=== PATIENT | male | born 1940 | race Caucasian/White ===

== ENCOUNTER 2019-03-18 06:58 | Emergency (ER) | payer MEDICARE, BC ==
--- NOTE | 2019-03-18 07:36 | CT ---
Exam: CT brain without contrast HISTORY: Fell out of bed this morning with head trauma COMPARISON: 10/17/2015 TECHNIQUE: Multiple contiguous axial images were obtained and a CT of the brain without contrast. FINDINGS: There are scattered hypodensities in the subcortical and periventricular white matter consi stent with small vessel ischemic disease. Encephalomalacia is seen in both cerebellar hemispheres. There is no evidence of hydrocephalus, intracranial hemorrhage, or extra-axial fluid collection. The calvarium and overlying soft tissues are unremarkable. The visualized paranasal sinuses and masto id air cells are well aerated. IMPRESSION: No evidence of acute intracranial abnormality
--- NOTE | 2019-03-18 07:46 | CT ---
Exam: CT of the cervical spine without contrast HISTORY: Fall with neck pain COMPARISON: None TECHNIQUE: Multiple contiguous axial images were obtained in a CT of the cervical spine without contr ast. Sagittal and coronal reformats were performed. FINDINGS: Degenerative changes are seen in the mid to lower cervical spine with intervertebral disc s pace narrowing and anterior osteophytes. The vertebral bodies demonstrate normal height and alignment without fracture or subluxation. No prevertebral soft tissue swelling is seen. The posterior facets are well aligned. Normal alignment of the skull base with the cervical spine is seen. The lung apices and cervical soft tissues are unremarkable. IMPRESSION: No evidence of acute osseous abnormality of the cervical spine.
[2019-03-18] MEDS ORDERED: Lidocaine 1% w/Epinephrine 1:100K 20 ML VIAL ONE (08:53)
[2019-03-18] MEDS ORDERED: Adacel (T-DAP) 0.5 ML SYRINGE ONE (08:53)
== END 2019-03-18 09:44 | disposition home or self-care (01) ==
LOC: ERS 06:58
DX: S01.81XA Laceration without foreign body of other part of head, initial encounter (principal); G20 Parkinson's disease; I10 Essential (primary) hypertension; Z86.73 Personal history of transient ischemic attack (TIA), and cerebral infarction without residual deficits; W06.XXXA Fall from bed, initial encounter
CPT/HCPCS: 12011; 70450; 72125; 90471; 90715; J2001

== ENCOUNTER 2022-11-25 07:33 | Inpatient (IN) | payer MEDICARE, BC ==
[2022-11-25 09:14] LABS: ALT (SGPT) 31 U/L (8-55); AST (SGOT) 32 U/L (5-34); Albumin 4.3 g/dL (3.4-4.8); Alkaline Phosphatase 55 U/L (40-110); Anion Gap 21 mmol/L (10-20); BUN (Urea Nitrogen) 24 mg/dL (8.4-25.7); Bilirubin, Total 1.6 mg/dL (0.2-1.2); CK (CPK) 510 U/L (30-200); Calc. Creatinine Clearance 0 mL/min (70-130); Calcium 9.1 mg/dL (7.8-10.44); Carbon Dioxide 19 mmol/L (23-31); Chloride 100 mmol/L (98-107); Estimated GFR 48; Globulin 2.8 g/dL (2.4-3.5); Glucose 175 mg/dL (83-110); Lipase 9 U/L (8-78); Potassium 4.2 mmol/L (3.5-5.1); Protein, Total 7.1 g/dL (5.8-8.1); Sodium 136 mmol/L (136-145)
[2022-11-25 09:16] LABS: Hemoglobin 15.2 g/dL (14.0-18.0); Mean Corpuscular HGB CONC 33.4 g/dL (32.0-36.0); Mean Corpuscular Hemoglobin 33.7 pg (27.0-31.0); RBC Distribution Width 13.2 % (11.5-14.5)
[2022-11-25 09:32] LABS: #Lymphocytes 0.4 thou/uL (1.20-3.40); #Monocytes 0.7 thou/uL (0.11-0.59); #Neutrophils 17.4 thou/uL (1.40-6.50); %Eosinophils 0.1 % (0.0-10.0); %Lymphocytes 2.3 % (21.0-51.0); %Monocytes 3.8 % (0.0-10.0); %Neutrophils 93.8 % (42.0-75.0); Large Platelets MODERATE; MDiff Complete? YES; Mean Platelet Volume 14.2 fL (7.4-10.4); Platelet Count 200 10x3/uL (130-400); Platelet Morphology Comment Appears Adequate; White Blood Cell (WBC) Count 18.5 10x3/uL (4.8-10.8)
[2022-11-25 09:36] LABS: CKMB 8.2 ng/mL (0-6.6)
[2022-11-25] MEDS ORDERED: Ondansetron PF 4 MG/2 ML Vial IVP PRN (10:46)
[2022-11-25] MEDS ORDERED: Acetaminophen 325 MG TAB PO PRN (10:46)
[2022-11-25] MEDS ORDERED: Ondansetron ODT 4 MG TAB PO PRN (10:46)
[2022-11-25 11:47] LABS: SARS-CoV-2 NAA Rapid Test Not Detected (NotDetected)
[2022-11-25 12:23] LABS: Acetaminophen Less than 10.0 mcg/mL (10.0-30.0); Alcohol Less than 10 mg/dL (Less than 10); Salicylate Less than 8.0 mg/dL (15.0-30.0)
[2022-11-25 13:16] LABS: CKMB 7.6 ng/mL (0-6.6)
[2022-11-25 13:56] LABS: Amphetamine Not Detected (NotDetected); Barbiturates Screen Detected (NotDetected); Benzodiazepine Screen Not Detected (NotDetected); Cocaine Metabolite Screen Not Detected (NotDetected); Methadone Not Detected (NotDetected); Methamphetamine Not Detected (NotDetected); Opiate Screen Not Detected (NotDetected); Oxycodone Screen Not Detected (NotDetected); Phencyclidine (PCP) Not Detected (NotDetected); THC/Cannabinoid Screen Not Detected (NotDetected); Tricyclic Screen Not Detected (NotDetected)
[2022-11-25] MEDS ORDERED: Furosemide 20 MG/2 ML VIAL SLOW IVP SCH (14:44)
[2022-11-25] MEDS ORDERED: Furosemide 20 MG/2 ML VIAL ONE (15:18)
[2022-11-25] MEDS ORDERED: Cefepime 2 GM in Sodium Chloride 0.9% 100 ML IVPB SCH (15:28)
[2022-11-25] MEDS ORDERED: Aspirin 325 MG TAB PO SCH (15:47)
[2022-11-25] MEDS ORDERED: FLU VACC QS2022-23(65YR UP)/PF 240 MCG/0.7 ML SYRINGE IM ONE (17:30)
[2022-11-25 17:47] VITALS: BMI 28.2
[2022-11-25] MEDS: Sodium Chloride 0.9% 1,000 ML IV SCH (18:33)
[2022-11-25] MEDS ORDERED: Propranolol 10 MG TAB PO PRN (18:57)
[2022-11-25] MEDS: Primidone 250 MG TAB PO SCH ×2 (19:38→19:57)
[2022-11-25] MEDS: Apixaban 5 MG TAB PO SCH (19:57)
[2022-11-25] MEDS: Carbidopa/Levodopa 25-100 mg Tablet PO SCH (19:57)
[2022-11-26 00:13] LABS: Bilirubin Negative (Negative); Blood, Urine Negative (Negative); Clarity Clear (Clear); Glucose, Urine (Dipstick) Negative (Negative); Ketone, Urine Trace mg/dL (Negative); Leukocyte Negative (Negative); Nitrite Negative (Negative); Protein, Urine (Dipstick) 30 mg/dL (Neg-Trace); Specific Gravity, Urine 1.025 (1.005-1.030); Urobilinogen 0.2 mg/dL (Less than 2)
[2022-11-26 00:16] LABS: Bacteria/HPF None Seen HPF (None Seen); CAUTI Indications for Culture Alt mental st,lethar; RBC/HPF None Seen HPF (0-3); Squamous Epithelial None Seen HPF (0-3); WBC/HPF None Seen HPF (0-3)
[2022-11-26 00:17] LABS: Urine Culture Reflex No No
[2022-11-26 02:02] LABS: Troponin I 0.541 ng/mL (< 0.028)
[2022-11-26] MEDS: Sodium Chloride 0.9% 1,000 ML IV SCH ×3 (04:15→21:50)
[2022-11-26 05:31] LABS: Anion Gap 17 mmol/L (10-20); BUN (Urea Nitrogen) 25 mg/dL (8.4-25.7); Calc. Creatinine Clearance 54 mL/min (70-130); Calcium 8.6 mg/dL (7.8-10.44); Carbon Dioxide 18 mmol/L (23-31); Chloride 106 mmol/L (98-107); Estimated GFR 58; Glucose 103 mg/dL (83-110); Sodium 137 mmol/L (136-145)
[2022-11-26] MEDS: Cefepime 1 GM in Sodium Chloride 0.9% 100 ML IVPB SCH ×2 (05:51→17:15)
[2022-11-26 07:01] LABS: #Monocytes 1.2 thou/uL (0.11-0.59); %Basophils 0.1 % (0.0-1.0); %Eosinophils 0.1 % (0.0-10.0); %Lymphocytes 6.2 % (21.0-51.0); %Monocytes 7.4 % (0.0-10.0); %Neutrophils 86.2 % (42.0-75.0); Hemoglobin 14.6 g/dL (14.0-18.0); Mean Corpuscular HGB CONC 33.4 g/dL (32.0-36.0); Mean Corpuscular Hemoglobin 33.5 pg (27.0-31.0); Mean Platelet Volume 9.6 fL (7.4-10.4); Platelet Count 81 10x3/uL (130-400); RBC Distribution Width 13.2 % (11.5-14.5); Red Blood Cell (RBC) Count 4.37 mill/uL (4.70-6.10); White Blood Cell (WBC) Count 16.2 10x3/uL (4.8-10.8)
[2022-11-26] MEDS: Tamsulosin HCl 0.4 MG CAP PO SCH (08:33)
[2022-11-26] MEDS: Apixaban 5 MG TAB PO SCH ×2 (08:33→20:20)
[2022-11-26] MEDS: Carbidopa/Levodopa 25-100 mg Tablet PO SCH ×4 (08:33→20:20)
[2022-11-26] MEDS: Primidone 250 MG TAB PO SCH ×3 (08:46→20:20)
[2022-11-26] MEDS ORDERED: Aspirin Chewable 81 MG TAB PO SCH (09:00)
[2022-11-27 05:43] LABS: Anion Gap 13 mmol/L (10-20); BUN (Urea Nitrogen) 25 mg/dL (8.4-25.7); Calc. Creatinine Clearance 62 mL/min (70-130); Calcium 8.4 mg/dL (7.8-10.44); Carbon Dioxide 20 mmol/L (23-31); Chloride 105 mmol/L (98-107); Estimated GFR 69; Glucose 113 mg/dL (83-110); Sodium 134 mmol/L (136-145)
[2022-11-27 05:44] LABS: Troponin I 0.186 ng/mL (< 0.028)
[2022-11-27 05:47] LABS: #Eosinphils 0.1 thou/uL (0.0-0.7); #Lymphocytes 1.1 thou/uL (1.20-3.40); #Neutrophils 10.6 thou/uL (1.40-6.50); %Basophils 0.1 % (0.0-1.0); %Eosinophils 0.7 % (0.0-10.0); %Lymphocytes 8.5 % (21.0-51.0); %Monocytes 7.5 % (0.0-10.0); %Neutrophils 83.2 % (42.0-75.0); Large Platelets SLIGHT; MDiff Complete? YES; Mean Corpuscular HGB CONC 32.5 g/dL (32.0-36.0); Mean Corpuscular Hemoglobin 32.9 pg (27.0-31.0); Mean Platelet Volume 14.2 fL (7.4-10.4); Platelet Count 75 10x3/uL (130-400); Platelet Morphology Comment Appears Decreased; RBC Distribution Width 13.1 % (11.5-14.5); RBC Morphology Normal; Red Blood Cell (RBC) Count 4.24 mill/uL (4.70-6.10); White Blood Cell (WBC) Count 12.7 10x3/uL (4.8-10.8)
[2022-11-27] MEDS: Cefepime 1 GM in Sodium Chloride 0.9% 100 ML IVPB SCH ×2 (06:40→17:30)
[2022-11-27] MEDS: Carbidopa/Levodopa 25-100 mg Tablet PO SCH ×4 (11:36→17:53)
[2022-11-27] MEDS: Sodium Chloride 0.9% 1,000 ML IV SCH (11:39)
[2022-11-27] MEDS: Primidone 250 MG TAB PO SCH ×3 (11:41→22:05)
[2022-11-27] MEDS: Apixaban 5 MG TAB PO SCH ×3 (11:41→22:05)
[2022-11-27] MEDS: Gabapentin 300 MG CAP PO SCH ×3 (11:42→18:23)
[2022-11-27] MEDS: Tamsulosin HCl 0.4 MG CAP PO SCH (11:42)
[2022-11-27 18:31] LABS: Platelet Count 77 10x3/uL (130-400)
[2022-11-27 18:44] LABS: Fibrinogen 419 mg/dL (253-463)
[2022-11-27 18:45] LABS: INR-International Normal Ratio 1.6; PTT 40.1 sec (22.9-36.1); Prothrombin Time 19.5 sec (12.0-14.7)
[2022-11-27 18:46] LABS: D-Dimer Test 0.81 *mcg/mL (0.27-0.43)
[2022-11-27 18:58] LABS: CKMB 2.7 ng/mL (0-6.6)
[2022-11-27 21:23] LABS: #Eosinphils 0.1 thou/uL (0.0-0.7); #Lymphocytes 1.3 thou/uL (1.20-3.40); #Monocytes 1.1 thou/uL (0.11-0.59); #Neutrophils 10.2 thou/uL (1.40-6.50); %Basophils 0.1 % (0.0-1.0); %Eosinophils 0.4 % (0.0-10.0); %Monocytes 8.7 % (0.0-10.0); %Neutrophils 80.7 % (42.0-75.0); Hemoglobin 14.5 g/dL (14.0-18.0); Mean Corpuscular HGB CONC 33.5 g/dL (32.0-36.0); Mean Corpuscular Hemoglobin 33.7 pg (27.0-31.0); Platelet Count 20 10x3/uL (130-400); RBC Distribution Width 13.1 % (11.5-14.5); Red Blood Cell (RBC) Count 4.31 mill/uL (4.70-6.10); White Blood Cell (WBC) Count 12.6 10x3/uL (4.8-10.8)
[2022-11-27 21:36] LABS: Lactic Acid 1.8 mmol/L (0.5-2.2)
[2022-11-27 21:40] LABS: Anion Gap 14 mmol/L (10-20); BUN (Urea Nitrogen) 20 mg/dL (8.4-25.7); Calc. Creatinine Clearance 63 mL/min (70-130); Calcium 8.3 mg/dL (7.8-10.44); Carbon Dioxide 18 mmol/L (23-31); Chloride 107 mmol/L (98-107); Estimated GFR 71; Glucose 112 mg/dL (83-110); Potassium 4.4 mmol/L (3.5-5.1); Sodium 135 mmol/L (136-145)
[2022-11-27 21:45] LABS: Troponin I 0.139 ng/mL (< 0.028)
[2022-11-28] MEDS: Sodium Chloride 0.9% 1,000 ML IV SCH ×2 (00:30→11:48)
[2022-11-28 05:19] LABS: #Eosinphils 0.1 thou/uL (0.0-0.7); #Lymphocytes 1.1 thou/uL (1.20-3.40); #Monocytes 0.8 thou/uL (0.11-0.59); #Neutrophils 8.3 thou/uL (1.40-6.50); %Basophils 0.3 % (0.0-1.0); %Eosinophils 0.8 % (0.0-10.0); %Lymphocytes 10.6 % (21.0-51.0); %Monocytes 7.7 % (0.0-10.0); %Neutrophils 80.6 % (42.0-75.0); Hemoglobin 15.1 g/dL (14.0-18.0); Mean Corpuscular HGB CONC 32.4 g/dL (32.0-36.0); Mean Corpuscular Hemoglobin 33.5 pg (27.0-31.0); Mean Platelet Volume 14.4 fL (7.4-10.4); Platelet Count 46 10x3/uL (130-400); RBC Distribution Width 13.4 % (11.5-14.5); White Blood Cell (WBC) Count 10.3 10x3/uL (4.8-10.8)
[2022-11-28] MEDS: Cefepime 1 GM in Sodium Chloride 0.9% 100 ML IVPB SCH (05:40)
[2022-11-28] MEDS: Gabapentin 300 MG CAP PO SCH ×4 (05:40→17:32)
[2022-11-28] MEDS: Carbidopa/Levodopa 25-100 mg Tablet PO SCH ×4 (05:40→17:32)
[2022-11-28 05:53] LABS: ALT (SGPT) 31 U/L (8-55); AST (SGOT) 69 U/L (5-34); Albumin 3.4 g/dL (3.4-4.8); Alkaline Phosphatase 67 U/L (40-110); Anion Gap 14 mmol/L (10-20); BUN (Urea Nitrogen) 20 mg/dL (8.4-25.7); Bilirubin, Total 1.1 mg/dL (0.2-1.2); Calc. Creatinine Clearance 72 mL/min (70-130); Calcium 8.4 mg/dL (7.8-10.44); Carbon Dioxide 17 mmol/L (23-31); Chloride 107 mmol/L (98-107); Estimated GFR 82; Globulin 2.8 g/dL (2.4-3.5); Glucose 105 mg/dL (83-110); Potassium 4.1 mmol/L (3.5-5.1); Protein, Total 6.2 g/dL (5.8-8.1); Sodium 134 mmol/L (136-145)
[2022-11-28] MEDS: Apixaban 5 MG TAB PO SCH ×2 (08:04→21:03)
[2022-11-28] MEDS: Tamsulosin HCl 0.4 MG CAP PO SCH (08:04)
[2022-11-28] MEDS ORDERED: Primidone 50 MG TAB PO SCH (09:00)
[2022-11-28] MEDS: Mometasone 100 MCG/PUFF (1 INHALER) INH SCH (18:59)
[2022-11-28] MEDS ORDERED: Non-Formulary Item 1 EACH (Fluticasone Propionate [Flovent Diskus] 50 MCG Blst.W.Dev) IH SCH (21:00)
[2022-11-28] MEDS: Primidone 50 MG TAB PO SCH (21:03)
[2022-11-29 05:16] LABS: #Basophils 0.1 thou/uL (0.0-0.2); #Eosinphils 0.3 thou/uL (0.0-0.7); #Lymphocytes 1.2 thou/uL (1.20-3.40); #Monocytes 0.8 thou/uL (0.11-0.59); #Neutrophils 6.7 thou/uL (1.40-6.50); %Basophils 0.6 % (0.0-1.0); %Eosinophils 3.1 % (0.0-10.0); %Lymphocytes 12.9 % (21.0-51.0); %Monocytes 9.1 % (0.0-10.0); %Neutrophils 74.4 % (42.0-75.0); Hemoglobin 14.7 g/dL (14.0-18.0); Mean Corpuscular Hemoglobin 33.2 pg (27.0-31.0); Mean Platelet Volume 14.2 fL (7.4-10.4); Platelet Count 87 10x3/uL (130-400); RBC Distribution Width 13.2 % (11.5-14.5); Red Blood Cell (RBC) Count 4.41 mill/uL (4.70-6.10)
[2022-11-29 05:40] LABS: Chloride 106 mmol/L (98-107); Potassium 3.9 mmol/L (3.5-5.1); Sodium 133 mmol/L (136-145)
[2022-11-29 05:41] LABS: Calcium 8.4 mg/dL (7.8-10.44); Glucose 110 mg/dL (83-110)
[2022-11-29 05:43] LABS: Anion Gap 11 mmol/L (10-20); Carbon Dioxide 20 mmol/L (23-31)
[2022-11-29 05:45] LABS: BUN (Urea Nitrogen) 19 mg/dL (8.4-25.7); Calc. Creatinine Clearance 69 mL/min (70-130); Estimated GFR 78
[2022-11-29 05:47] LABS: CK (CPK) 277 U/L (30-200)
[2022-11-29] MEDS: Gabapentin 300 MG CAP PO SCH ×3 (06:42→14:11)
[2022-11-29] MEDS: Carbidopa/Levodopa 25-100 mg Tablet PO SCH ×3 (06:42→14:12)
[2022-11-29] MEDS: Mometasone 100 MCG/PUFF (1 INHALER) INH SCH (06:53)
[2022-11-29] MEDS ORDERED: Zinc Sulfate 220 MG CAP PO SCH (09:00)
[2022-11-29] MEDS ORDERED: Finasteride 5 MG TAB PO SCH (09:00)
[2022-11-29] MEDS ORDERED: Non-Formulary Item 1 EACH (Zinc Gluconate [Zinc] 50 MG Tablet) PO SCH (09:00)
[2022-11-29] MEDS ORDERED: Cholecalciferol 1,000 UNITS (25 MCG) TAB PO SCH (09:00)
[2022-11-29] MEDS ORDERED: CHOLECALCIFEROL PO SCH (09:00)
[2022-11-29] MEDS: Apixaban 5 MG TAB PO SCH (10:21)
[2022-11-29] MEDS: Primidone 50 MG TAB PO SCH (10:22)
[2022-11-29] MEDS: Tamsulosin HCl 0.4 MG CAP PO SCH (10:23)
[2022-11-29 11:59] VITALS: BP 129/78; TEMP 97.6
== END 2022-11-29 15:22 | DRG 70 ==
LOC: ERS 07:33 → ERHOLD 09:46 → 2SW 16:32 → OBSVTOIN 11-27 14:53
PROVIDERS: ADMIT Internal Medicine; ATTEND Internal Medicine
PROC: 6A4Z0ZZ Hypothermia, Single (ICD-10-PCS; principal; 2022-11-27)
PROC: 4A10X4Z Monitoring of Central Nervous Electrical Activity, External Approach (ICD-10-PCS; 2022-11-27)
DX: G93.41 Metabolic encephalopathy (principal); I21.A1 Myocardial infarction type 2; M62.82 Rhabdomyolysis; N17.9 Acute kidney failure, unspecified; E87.20 Acidosis, unspecified; I42.9 Cardiomyopathy, unspecified; I48.21 Permanent atrial fibrillation; G20 Parkinson's disease; N40.0 Benign prostatic hyperplasia without lower urinary tract symptoms; R73.9 Hyperglycemia, unspecified; I34.0 Nonrheumatic mitral (valve) insufficiency; I27.20 Pulmonary hypertension, unspecified; I44.7 Left bundle-branch block, unspecified; D69.6 Thrombocytopenia, unspecified; I12.9 Hypertensive chronic kidney disease with stage 1 through stage 4 chronic kidney disease, or unspecified chronic kidney disease; T68.XXXA Hypothermia, initial encounter; N18.2 Chronic kidney disease, stage 2 (mild); Z20.822 Contact with and (suspected) exposure to COVID-19; Z88.5 Allergy status to narcotic agent; Z88.0 Allergy status to penicillin; Z79.82 Long term (current) use of aspirin; Z79.01 Long term (current) use of anticoagulants; Z79.899 Other long term (current) drug therapy; Z86.73 Personal history of transient ischemic attack (TIA), and cerebral infarction without residual deficits; Z95.0 Presence of cardiac pacemaker; Z79.890 Hormone replacement therapy; Z90.49 Acquired absence of other specified parts of digestive tract
CPT/HCPCS: 36415; 36416; 70450; 71045; 72100; 72125; 76770; 80048; 80053; 80143; 80179; 80306; 80307; 81001; 82550; 82553; 83605; 83690; 83735; 83880; 84100; 84484; 85025; 85049; 85300; 85362; 85379; 85384; 85610; 85730; 87040; 93005; 93306; 93880; 95712; 95819; 95957; 96374; 96375; G0378; J0692; J1940; J3490; J7050

== ENCOUNTER 2022-12-03 19:06 | Outpatient (CLI) | payer BC, MEDICARE | END 2022-12-03 19:07 | disposition home or self-care (01) | LOC: HS RAD 19:06 | PROVIDERS: ATTEND Physical Medicine & Rehabilitation | DX: R50.9 Fever, unspecified (principal); R91.8 Other nonspecific abnormal finding of lung field | CPT/HCPCS: 71046 ==

== ENCOUNTER 2023-05-24 10:30 | Inpatient (IN) | payer MEDICARE, BC ==
[2023-05-24 10:35] VITALS: BMI 26.9
[2023-05-24 11:25] LABS: INR-International Normal Ratio 1.3; PTT 32.2 sec (22.0-33.0); Prothrombin Time 13.5 sec (9.5-12.1)
[2023-05-24 11:28] LABS: Hemoglobin 13.6 g/dL (13.5-17.5); Mean Corpuscular Hemoglobin 32.1 pg (27.0-33.0); Mean Corpuscular Volume 94.3 fl (81.2-95.1); Mean Platelet Volume 14.7 fl (7.4-10.4); Platelet Count 123 10x3/uL (150-450); RBC Distribution Width 15.7 % (11.5-14.5); Red Blood Cell (RBC) Count 4.24 10x6/uL (4.32-5.72); White Blood Cell (WBC) Count 5.8 10x3/uL (3.5-10.5)
[2023-05-24 11:36] LABS: ALT (SGPT) 8 U/L (8-55); AST (SGOT) 18 U/L (5-34); Alkaline Phosphatase 60 U/L (40-110); Anion Gap 14 mmol/L (10-20); BUN (Urea Nitrogen) 23 mg/dL (8.4-25.7); Bilirubin, Total 0.9 mg/dL (0.2-1.2); Calc. Creatinine Clearance 60 mL/min (70-130); Calcium 8.6 mg/dL (7.8-10.44); Carbon Dioxide 26 mmol/L (23-31); Chloride 101 mmol/L (98-107); Estimated GFR 71; Globulin 2.6 g/dL (2.4-3.5); Glucose 112 mg/dL (83-110); Potassium 3.7 mmol/L (3.5-5.1); Protein, Total 6.6 g/dL (5.8-8.1); Sodium 137 mmol/L (136-145)
[2023-05-24 11:47] LABS: Bilirubin Neg (Negative); Blood, Urine 10 (Negative); Clarity Clear (Clear); Glucose, Urine (Dipstick) Normal (Negative); Ketone, Urine Negative (Negative); Leukocyte Negative (Negative); Nitrite Negative (Negative); Protein, Urine (Dipstick) Negative (Neg-Trace)
[2023-05-29] MEDS ORDERED: Heparin 10,000 UNITS/ 10 ML VIAL ONE (13:27)
[2023-05-29] MEDS ORDERED: Protamine Sulfate 50 MG/5 ML VIAL ONE (13:27)
[2023-05-29] MEDS ORDERED: Clindamycin/D5W 900 mg/50 ml Premix Bag ONE (13:34)
[2023-05-29] MEDS ORDERED: fentaNYL 50 mcg/mL 1 mL Vial ONE (14:22)
[2023-05-29] MEDS ORDERED: SUGAMMADEX SODIUM 200 MG/2 ML VIAL ONE (14:22)
[2023-05-29] MEDS ORDERED: Lidocaine 1% PF 5 ML VIAL ONE (14:25)
[2023-05-29] MEDS ORDERED: PROPOFOL 200 MG/20 ML VIAL ONE (14:25)
[2023-05-29] MEDS ORDERED: Ondansetron PF 4 MG/2 ML Vial ONE (14:25)
[2023-05-29] MEDS ORDERED: Rocuronium Bromide 10 MG/ML (10ML VIAL) ONE (14:25)
[2023-05-29] MEDS ORDERED: Dexamethasone 20 MG/5 ML VIAL ONE (14:25)
[2023-05-29] MEDS ORDERED: Iopamidol 370 76% 100 ML VIAL ONE (15:03)
== END 2023-05-29 19:15 | disposition home or self-care (01) | DRG 274 ==
LOC: SURG A 05-29 11:22
PROVIDERS: ADMIT Internal Medicine Cardiovascular Disease; ATTEND Internal Medicine Cardiovascular Disease
PROC: 02L73DK Occlusion of Left Atrial Appendage with Intraluminal Device, Percutaneous Approach (ICD-10-PCS; principal; 2023-05-29)
PROC: B24BZZ4 Ultrasonography of Heart with Aorta, Transesophageal (ICD-10-PCS; 2023-05-29)
DX: I48.11 Longstanding persistent atrial fibrillation (principal); I50.30 Unspecified diastolic (congestive) heart failure; I11.0 Hypertensive heart disease with heart failure; I44.7 Left bundle-branch block, unspecified; I35.0 Nonrheumatic aortic (valve) stenosis; I07.1 Rheumatic tricuspid insufficiency; G20 Parkinson's disease; F10.90 Alcohol use, unspecified, uncomplicated; Z90.49 Acquired absence of other specified parts of digestive tract; Z98.890 Other specified postprocedural states; Z95.0 Presence of cardiac pacemaker; Z79.890 Hormone replacement therapy; Z79.01 Long term (current) use of anticoagulants; Z79.899 Other long term (current) drug therapy; Z88.0 Allergy status to penicillin; Z88.5 Allergy status to narcotic agent; Z91.81 History of falling; Z82.49 Family history of ischemic heart disease and other diseases of the circulatory system
CPT/HCPCS: 80053; 81003; 85027; 85347; 85610; 85730; 86850; 86900; 86901; 93306; 93312; C1759; C1760; C1894; J1100; J1644; J2405; J2704; J2720; J3010; J3490; Q9967

== ENCOUNTER 2023-07-19 05:59 | Day surgery (SDC) | payer MEDICARE, BC ==
[2023-07-16 11:24] VITALS: BMI 25.7
[2023-07-16 11:31] LABS: Hematocrit 41.9 % (38.8-50.0); Hemoglobin 14.1 g/dL (13.5-17.5); Mean Corpuscular HGB CONC 33.7 g/dL (32.0-36.0); Mean Corpuscular Hemoglobin 32.6 pg (27.0-33.0); Mean Platelet Volume 13.8 fl (7.4-10.4); Platelet Count 132 10x3/uL (150-450); Red Blood Cell (RBC) Count 4.32 10x6/uL (4.32-5.72); White Blood Cell (WBC) Count 6.4 10x3/uL (3.5-10.5)
[2023-07-16 11:59] LABS: Anion Gap 14 mmol/L (10-20); BUN (Urea Nitrogen) 22 mg/dL (8.4-25.7); Calc. Creatinine Clearance 52 mL/min (70-130); Calcium 8.8 mg/dL (7.8-10.44); Carbon Dioxide 26 mmol/L (23-31); Chloride 101 mmol/L (98-107); Estimated GFR 63; Glucose 97 mg/dL (83-110); Potassium 3.8 mmol/L (3.5-5.1); Sodium 137 mmol/L (136-145)
[2023-07-19] MEDS ORDERED: Lidocaine 2% PF 100 mg/5 ml Syringe ONE (07:21)
[2023-07-19] MEDS ORDERED: PROPOFOL 20 ML ONE (07:21)
[2023-07-19] MEDS ORDERED: Lidocaine 1% PF 5 ML VIAL ONE (07:56)
[2023-07-19] MEDS ORDERED: PHENYLEPHRINE-NS 100 MCG/ML 10 ML SYRINGE ONE (07:56)
== END 2023-07-19 09:47 | disposition home or self-care (01) ==
LOC: SDC 05:59
PROVIDERS: ATTEND Internal Medicine Cardiovascular Disease
DX: I48.11 Longstanding persistent atrial fibrillation (principal); I10 Essential (primary) hypertension; Z79.01 Long term (current) use of anticoagulants; Z91.81 History of falling; Z95.0 Presence of cardiac pacemaker; Z86.73 Personal history of transient ischemic attack (TIA), and cerebral infarction without residual deficits; Z90.49 Acquired absence of other specified parts of digestive tract; Z88.5 Allergy status to narcotic agent; Z88.0 Allergy status to penicillin; Z79.899 Other long term (current) drug therapy
CPT/HCPCS: 80048; 85027; 93312; J2001; J2704

== ENCOUNTER 2023-11-18 08:19 | Inpatient (IN) | payer BC, MEDICARE ==
[2023-11-18 08:55] LABS: Hematocrit 41.5 % (42.0-52.0); Hemoglobin 13.8 g/dL (14.0-18.0); Manual Diff?? YES; Mean Corpuscular HGB CONC 33.3 g/dL (32.0-36.0); Mean Corpuscular Hemoglobin 33.3 pg (27.0-31.0); Mean Platelet Volume 14.2 fL (7.4-10.4); Platelet Count 181 10x3/uL (130-400); Red Blood Cell (RBC) Count 4.15 mill/uL (4.70-6.10); White Blood Cell (WBC) Count 13.4 10x3/uL (4.8-10.8)
[2023-11-18 09:09] LABS: Delete Auto Diff?? YES
[2023-11-18 09:15] LABS: Actual Bicarbonate (HCO3v) 25.3 mEq/L (22-28); Base Excess -0.4 mEq/L (-2.0 to +3.0); Calcium, Ionized (venous) 1.11 mmol/L (1.16-1.32); Chloride (VBG) 98 mmol/L (98-106); Hematocrit-VBG 42 % (42.0-52.0); Hemoglobin (Hb) 14.4 g/dL (12.6-17.4); Potassium (VBG) 3.88 mmol/L (3.70-5.30); Sodium 136 mmol/L (133-146); pH (venous) 7.365 (7.32-7.43)
[2023-11-18 09:19] LABS: ALT (SGPT) 23 U/L (8-55); AST (SGOT) 37 U/L (5-34); Albumin 3.7 g/dL (3.4-4.8); Alkaline Phosphatase 69 U/L (40-110); Anion Gap 18 mmol/L (10-20); BUN (Urea Nitrogen) 30 mg/dL (8.4-25.7); Bilirubin, Total 1.3 mg/dL (0.2-1.2); CK (CPK) 449 U/L (30-200); Calc. Creatinine Clearance 0 mL/min (70-130); Calcium 8.7 mg/dL (7.8-10.44); Carbon Dioxide 24 mmol/L (23-31); Chloride 99 mmol/L (98-107); Estimated GFR 60; Globulin 3.1 g/dL (2.4-3.5); Glucose 121 mg/dL (83-110); Protein, Total 6.8 g/dL (5.8-8.1); Sodium 137 mmol/L (136-145)
[2023-11-18] MEDS ORDERED: Ipratropium/Albuterol 3 ML NEB ONE (09:22)
[2023-11-18 09:23] LABS: Troponin I 0.151 ng/mL (< 0.028)
[2023-11-18 09:31] LABS: Band 4 % (5-11); Burr Cells SLIGHT = 2-5 cells HPF (0-1); CellaVision Operator ID LAB.KW3; Lymphocytes 6 % (21-51); Monocytes 6 % (0-10); Neutrophil 84 % (42-75); Platelet Adequacy Comment Platelets Normal; Polychromasia SLIGHT = 2-3 cells HPF (0-2); Total Cell Count 100
[2023-11-18 10:02] LABS: Bacteria/HPF None Seen HPF (None Seen); Bilirubin Negative (Negative); Blood, Urine Negative (Negative); CAUTI Indications for Culture Alt mental st,lethar; Clarity Clear (Clear); Glucose, Urine (Dipstick) Normal (Negative); Ketone, Urine Negative (Negative); Leukocyte Negative Leu/uL (Negative); Nitrite Negative (Negative); Protein, Urine (Dipstick) 30 mg/dL (Neg-Trace); RBC/HPF 0-3 HPF (0-3); Specific Gravity, Urine 1.022 (1.002-1.036); Squamous Epithelial None Seen HPF (0-3); Urobilinogen Normal mg/dL (Less than 2); WBC/HPF 0-3 HPF (0-3); pH, Urine 5.5 (5.0-9.0)
[2023-11-18 10:18] LABS: Urine Culture Reflex No No
[2023-11-18 12:56] LABS: Troponin I 0.167 ng/mL (< 0.028)
[2023-11-18] MEDS ORDERED: Acetaminophen 650 MG Suppository PR PRN (14:30)
[2023-11-18] MEDS ORDERED: Senokot S 8.6-50 MG TAB PO PRN (14:30)
[2023-11-18] MEDS ORDERED: Ondansetron PF 4 MG/2 ML Vial IVP PRN (14:30)
[2023-11-18] MEDS ORDERED: Bisacodyl 5 MG TAB PO PRN (14:30)
[2023-11-18] MEDS ORDERED: Acetaminophen 325 MG TAB PO PRN (14:30)
[2023-11-18] MEDS ORDERED: Ondansetron ODT 4 MG TAB PO PRN (14:30)
[2023-11-18] MEDS ORDERED: HYDROcodone/Acetaminophen 5/325 mg Tablet PO PRN (14:30)
[2023-11-18] MEDS ORDERED: LevoFLOXacin 750 mg/D5W 750 MG in Premix 1 BAG IVPB SCH (15:30)
[2023-11-18 15:51] LABS: Lactic Acid 2.4 mmol/L (0.5-2.2)
[2023-11-18] MEDS ORDERED: LevoFLOXacin 750 mg/D5W 150 ml Premix Bag ONE (15:51)
[2023-11-18 16:00] LABS: Troponin I 0.182 ng/mL (< 0.028)
[2023-11-18] MEDS: Sodium Chloride 0.9% 1,000 ML IV SCH (16:01)
[2023-11-18] MEDS: Carbidopa/Levodopa 25-100 mg Tablet PO SCH (21:03)
[2023-11-19 03:52] LABS: Hematocrit 39.8 % (42.0-52.0); Hemoglobin 13.3 g/dL (14.0-18.0); Manual Diff?? YES; Mean Corpuscular HGB CONC 33.4 g/dL (32.0-36.0); Mean Corpuscular Hemoglobin 33.2 pg (27.0-31.0); Mean Corpuscular Volume 99.3 fl (78.0-98.0); Mean Platelet Volume 14.7 fL (7.4-10.4); Platelet Count 154 10x3/uL (130-400); Red Blood Cell (RBC) Count 4.01 mill/uL (4.70-6.10); White Blood Cell (WBC) Count 13.1 10x3/uL (4.8-10.8)
[2023-11-19] MEDS: Sodium Chloride 0.9% 1,000 ML IV SCH (03:53)
[2023-11-19 04:15] LABS: Delete Auto Diff?? YES
[2023-11-19 04:24] LABS: Anion Gap 16 mmol/L (10-20); BUN (Urea Nitrogen) 24 mg/dL (8.4-25.7); CK (CPK) 206 U/L (30-200); Calc. Creatinine Clearance 59 mL/min (70-130); Calcium 8.5 mg/dL (7.8-10.44); Carbon Dioxide 24 mmol/L (23-31); Chloride 101 mmol/L (98-107); Estimated GFR 65; Glucose 122 mg/dL (83-110); Potassium 3.8 mmol/L (3.5-5.1); Sodium 137 mmol/L (136-145)
[2023-11-19 05:05] LABS: Anisocytosis SLIGHT = 6-15 cells HPF (0-5); Band 2 % (5-11); CellaVision Operator ID LAB.JMM; Lymphocytes 6 % (21-51); Macrocytosis SLIGHT = 6-15 cells HPF (0-5); Monocytes 4 % (0-10); Myelocyte 1 % (0-0); Neutrophil 87 % (42-75); Platelet Adequacy Comment Platelets Decreased; Polychromasia SLIGHT = 2-3 cells HPF (0-2); Total Cell Count 100
[2023-11-19] MEDS: Levothyroxine Sodium 25 MCG TAB PO SCH (05:10)
[2023-11-19] MEDS: Carbidopa/Levodopa 25-100 mg Tablet PO SCH ×4 (05:11→20:27)
[2023-11-19] MEDS: Famotidine 20 MG TAB PO SCH ×2 (09:05→20:28)
[2023-11-19] MEDS: Carvedilol 3.125 MG TAB PO SCH ×2 (09:05→20:28)
[2023-11-19] MEDS: Aspirin 81 mg Enteric Coated Tablet PO SCH (09:05)
[2023-11-19] MEDS: Enoxaparin 40 MG (0.4 mL) SYRINGE SC SCH (09:05)
[2023-11-19] MEDS: Cholecalciferol 1,000 UNITS (25 MCG) TAB PO SCH (09:05)
[2023-11-19] MEDS: Finasteride 5 MG TAB PO SCH (09:05)
[2023-11-19] MEDS: Cyanocobalamin (Vitamin B-12) 1,000 MCG TAB PO SCH (09:05)
[2023-11-19] MEDS: Tamsulosin HCl 0.4 MG CAP PO SCH (09:06)
[2023-11-19] MEDS: Clopidogrel Bisulfate 75 MG TAB PO SCH (09:06)
[2023-11-19] MEDS: Gabapentin 300 MG CAP PO SCH ×3 (11:03→20:28)
[2023-11-19 13:12] LABS: SARS-CoV-2 NAA Rapid Test Not Detected (NotDetected)
[2023-11-19] MEDS: GUAIFENESIN SF SOLN 200 MG/10 ML UDCUP PO PRN ×2 (16:37→20:27)
[2023-11-20 04:26] LABS: #Eosinphils 0.1 thou/uL (0.0-0.7); #Monocytes 0.7 thou/uL (0.11-0.59); #Neutrophils 9.4 thou/uL (1.40-6.50); %Basophils 0.3 % (0.0-1.0); %Eosinophils 0.8 % (0.0-10.0); %Lymphocytes 9.9 % (21.0-51.0); Hematocrit 42.4 % (42.0-52.0); Hemoglobin 13.9 g/dL (14.0-18.0); Mean Corpuscular HGB CONC 32.8 g/dL (32.0-36.0); Mean Corpuscular Hemoglobin 33.2 pg (27.0-31.0); Mean Corpuscular Volume 101.2 fl (78.0-98.0); Mean Platelet Volume 14.6 fL (7.4-10.4); Platelet Count 144 10x3/uL (130-400); RBC Distribution Width 14.1 % (11.5-14.5); Red Blood Cell (RBC) Count 4.19 mill/uL (4.70-6.10); White Blood Cell (WBC) Count 11.5 10x3/uL (4.8-10.8)
[2023-11-20 04:52] LABS: Anion Gap 17 mmol/L (10-20); BUN (Urea Nitrogen) 20 mg/dL (8.4-25.7); Calc. Creatinine Clearance 69 mL/min (70-130); Calcium 8.1 mg/dL (7.8-10.44); Carbon Dioxide 20 mmol/L (23-31); Chloride 100 mmol/L (98-107); Estimated GFR 78; Glucose 94 mg/dL (83-110); Sodium 133 mmol/L (136-145)
[2023-11-20] MEDS: Levothyroxine Sodium 25 MCG TAB PO SCH (05:21)
[2023-11-20] MEDS: Carbidopa/Levodopa 25-100 mg Tablet PO SCH ×4 (05:22→20:58)
[2023-11-20] MEDS: Gabapentin 300 MG CAP PO SCH ×4 (05:33→23:04)
[2023-11-20] MEDS ORDERED: Fluticasone Propionate Nasal Spray 16 gm Bottle NASAL PRN (08:25)
[2023-11-20] MEDS: Enoxaparin 40 MG (0.4 mL) SYRINGE SC SCH (08:54)
[2023-11-20] MEDS: Primidone 50 MG TAB PO SCH ×4 (08:55→20:54)
[2023-11-20] MEDS: Cyanocobalamin (Vitamin B-12) 1,000 MCG TAB PO SCH (08:55)
[2023-11-20] MEDS: Carvedilol 3.125 MG TAB PO SCH ×2 (08:55→20:54)
[2023-11-20] MEDS: Cholecalciferol 1,000 UNITS (25 MCG) TAB PO SCH (08:55)
[2023-11-20] MEDS: Clopidogrel Bisulfate 75 MG TAB PO SCH (08:55)
[2023-11-20] MEDS: Aspirin 81 mg Enteric Coated Tablet PO SCH (08:55)
[2023-11-20] MEDS: Finasteride 5 MG TAB PO SCH (08:55)
[2023-11-20] MEDS: Tamsulosin HCl 0.4 MG CAP PO SCH (08:55)
[2023-11-20] MEDS: Famotidine 20 MG TAB PO SCH ×2 (08:55→20:54)
[2023-11-20] MEDS ORDERED: Furosemide 80 MG TAB PO SCH (09:00)
[2023-11-20] MEDS: GUAIFENESIN SF SOLN 200 MG/10 ML UDCUP PO PRN ×2 (11:00→20:58)
[2023-11-20] MEDS ORDERED: Ipratropium/Albuterol 3 ML NEB NEB SCH (14:00)
[2023-11-20] MEDS ORDERED: Spironolactone 25 MG TAB PO SCH (16:15)
[2023-11-20] MEDS ORDERED: LevoFLOXacin 750 mg/D5W 750 MG in Premix 1 BAG IVPB SCH (17:00)
[2023-11-20] MEDS: guaiFENesin ER 600 MG TAB PO SCH (20:54)
[2023-11-21 04:31] LABS: #Eosinphils 0.2 thou/uL (0.0-0.7); #Monocytes 0.8 thou/uL (0.11-0.59); #Neutrophils 11.2 thou/uL (1.40-6.50); %Basophils 0.2 % (0.0-1.0); %Eosinophils 1.3 % (0.0-10.0); %Lymphocytes 8.3 % (21.0-51.0); %Monocytes 5.7 % (0.0-10.0); %Neutrophils 82.7 % (42.0-75.0); Hematocrit 43.1 % (42.0-52.0); Hemoglobin 14.2 g/dL (14.0-18.0); Mean Corpuscular HGB CONC 32.9 g/dL (32.0-36.0); Mean Corpuscular Hemoglobin 33.3 pg (27.0-31.0); Mean Corpuscular Volume 100.9 fl (78.0-98.0); Mean Platelet Volume 14.1 fL (7.4-10.4); Platelet Count 196 10x3/uL (130-400); RBC Distribution Width 14.1 % (11.5-14.5); Red Blood Cell (RBC) Count 4.27 mill/uL (4.70-6.10); White Blood Cell (WBC) Count 13.5 10x3/uL (4.8-10.8)
[2023-11-21 04:52] LABS: Anion Gap 14 mmol/L (10-20); BUN (Urea Nitrogen) 19 mg/dL (8.4-25.7); Calc. Creatinine Clearance 62 mL/min (70-130); Calcium 8.1 mg/dL (7.8-10.44); Carbon Dioxide 28 mmol/L (23-31); Chloride 96 mmol/L (98-107); Estimated GFR 69; Glucose 91 mg/dL (83-110); Potassium 3.5 mmol/L (3.5-5.1); Sodium 134 mmol/L (136-145)
[2023-11-21] MEDS: Carbidopa/Levodopa 25-100 mg Tablet PO SCH ×4 (07:04→21:05)
[2023-11-21] MEDS: Gabapentin 300 MG CAP PO SCH ×4 (07:04→21:05)
[2023-11-21] MEDS: Levothyroxine Sodium 25 MCG TAB PO SCH (07:04)
[2023-11-21] MEDS: Carvedilol 6.25 MG TAB PO SCH ×2 (10:01→21:03)
[2023-11-21] MEDS: Aspirin 81 mg Enteric Coated Tablet PO SCH (10:02)
[2023-11-21] MEDS: Cyanocobalamin (Vitamin B-12) 1,000 MCG TAB PO SCH (10:03)
[2023-11-21] MEDS: Primidone 50 MG TAB PO SCH ×4 (10:03→21:04)
[2023-11-21] MEDS: Lisinopril 5 MG TAB PO SCH ×2 (10:04→21:04)
[2023-11-21] MEDS: Spironolactone 25 MG TAB PO SCH (10:04)
[2023-11-21] MEDS: Furosemide 40 MG TAB PO SCH (10:06)
[2023-11-21] MEDS: Famotidine 20 MG TAB PO SCH ×2 (10:06→21:03)
[2023-11-21] MEDS: guaiFENesin ER 600 MG TAB PO SCH ×2 (10:06→21:04)
[2023-11-21] MEDS: Tamsulosin HCl 0.4 MG CAP PO SCH (10:07)
[2023-11-21] MEDS: Finasteride 5 MG TAB PO SCH (10:07)
[2023-11-21] MEDS: Cholecalciferol 1,000 UNITS (25 MCG) TAB PO SCH (10:09)
[2023-11-21] MEDS: Clopidogrel Bisulfate 75 MG TAB PO SCH (10:09)
[2023-11-21] MEDS: Enoxaparin 40 MG (0.4 mL) SYRINGE SC SCH (10:09)
[2023-11-21] MEDS: Ipratropium/Albuterol 3 ML NEB NEB PRN (14:33)
[2023-11-21] MEDS ORDERED: LevoFLOXacin 750 mg/D5W 750 MG in Premix 1 BAG IVPB SCH (17:00)
[2023-11-21] MEDS ORDERED: Loratadine 10 MG TAB PO PRN (21:04)
[2023-11-21] MEDS ORDERED: Artificial Tear Sol 15 ML BOT EA EYE PRN (21:04)
[2023-11-22] MEDS: Ipratropium/Albuterol 3 ML NEB NEB PRN ×2 (04:52→14:10)
[2023-11-22 05:39] LABS: #Basophils 0.1 thou/uL (0.0-0.2); #Eosinphils 0.3 thou/uL (0.0-0.7); #Monocytes 0.8 thou/uL (0.11-0.59); #Neutrophils 10.2 thou/uL (1.40-6.50); %Basophils 0.5 % (0.0-1.0); %Eosinophils 2.1 % (0.0-10.0); %Lymphocytes 8.2 % (21.0-51.0); %Monocytes 6.2 % (0.0-10.0); %Neutrophils 80.6 % (42.0-75.0); Hematocrit 41.2 % (42.0-52.0); Hemoglobin 13.7 g/dL (14.0-18.0); Mean Corpuscular HGB CONC 33.3 g/dL (32.0-36.0); Mean Corpuscular Hemoglobin 32.7 pg (27.0-31.0); Mean Corpuscular Volume 98.3 fl (78.0-98.0); Mean Platelet Volume 13.1 fL (7.4-10.4); Platelet Count 166 10x3/uL (130-400); Red Blood Cell (RBC) Count 4.19 mill/uL (4.70-6.10); White Blood Cell (WBC) Count 12.6 10x3/uL (4.8-10.8)
[2023-11-22] MEDS: Gabapentin 300 MG CAP PO SCH ×4 (05:52→20:41)
[2023-11-22] MEDS: Carbidopa/Levodopa 25-100 mg Tablet PO SCH ×4 (05:52→20:42)
[2023-11-22] MEDS: Levothyroxine Sodium 25 MCG TAB PO SCH (05:53)
[2023-11-22 05:56] LABS: Anion Gap 11 mmol/L (10-20); BUN (Urea Nitrogen) 18 mg/dL (8.4-25.7); Calc. Creatinine Clearance 67 mL/min (70-130); Calcium 8.2 mg/dL (7.8-10.44); Carbon Dioxide 26 mmol/L (23-31); Chloride 99 mmol/L (98-107); Estimated GFR 75; Glucose 99 mg/dL (83-110); Potassium 3.9 mmol/L (3.5-5.1); Sodium 132 mmol/L (136-145)
[2023-11-22] MEDS: Furosemide 40 MG TAB PO SCH (10:01)
[2023-11-22] MEDS: Lisinopril 5 MG TAB PO SCH ×2 (10:01→20:33)
[2023-11-22] MEDS: Finasteride 5 MG TAB PO SCH (10:01)
[2023-11-22] MEDS: Cholecalciferol 1,000 UNITS (25 MCG) TAB PO SCH (10:01)
[2023-11-22] MEDS: Carvedilol 6.25 MG TAB PO SCH ×2 (10:02→20:32)
[2023-11-22] MEDS: Primidone 50 MG TAB PO SCH ×4 (10:02→20:32)
[2023-11-22] MEDS: Famotidine 20 MG TAB PO SCH ×2 (10:02→20:32)
[2023-11-22] MEDS: Aspirin 81 mg Enteric Coated Tablet PO SCH (10:02)
[2023-11-22] MEDS: guaiFENesin ER 600 MG TAB PO SCH ×2 (10:02→20:31)
[2023-11-22] MEDS: Cyanocobalamin (Vitamin B-12) 1,000 MCG TAB PO SCH (10:02)
[2023-11-22] MEDS: Tamsulosin HCl 0.4 MG CAP PO SCH (10:03)
[2023-11-22] MEDS: Clopidogrel Bisulfate 75 MG TAB PO SCH (10:03)
[2023-11-22] MEDS: Enoxaparin 40 MG (0.4 mL) SYRINGE SC SCH (10:03)
[2023-11-22] MEDS: Spironolactone 25 MG TAB PO SCH (10:03)
[2023-11-22] MEDS: LevoFLOXacin 750 MG TAB PO SCH (17:40)
[2023-11-23] MEDS: Gabapentin 300 MG CAP PO SCH ×4 (05:09→21:58)
[2023-11-23] MEDS: Levothyroxine Sodium 25 MCG TAB PO SCH (05:09)
[2023-11-23] MEDS: Carbidopa/Levodopa 25-100 mg Tablet PO SCH ×4 (05:10→21:58)
[2023-11-23 06:31] LABS: Hematocrit 41.8 % (42.0-52.0); Hemoglobin 13.7 g/dL (14.0-18.0); Manual Diff?? YES; Mean Corpuscular HGB CONC 32.8 g/dL (32.0-36.0); Mean Corpuscular Hemoglobin 32.7 pg (27.0-31.0); Mean Corpuscular Volume 99.8 fl (78.0-98.0); Mean Platelet Volume 13.7 fL (7.4-10.4); Platelet Count 182 10x3/uL (130-400); RBC Distribution Width 14.2 % (11.5-14.5); Red Blood Cell (RBC) Count 4.19 mill/uL (4.70-6.10); White Blood Cell (WBC) Count 15.4 10x3/uL (4.8-10.8)
[2023-11-23 06:35] LABS: Delete Auto Diff?? YES
[2023-11-23 06:53] LABS: Anion Gap 11 mmol/L (10-20); BUN (Urea Nitrogen) 17 mg/dL (8.4-25.7); Calc. Creatinine Clearance 59 mL/min (70-130); Calcium 8.2 mg/dL (7.8-10.44); Carbon Dioxide 26 mmol/L (23-31); Chloride 98 mmol/L (98-107); Estimated GFR 66; Glucose 102 mg/dL (83-110); Potassium 3.7 mmol/L (3.5-5.1); Sodium 131 mmol/L (136-145)
[2023-11-23 07:05] LABS: Band 6 % (5-11); CellaVision Operator ID LAB.CLH1; Eosinophils 1 % (0-10); Hypochromia SLIGHT = 6-15 cells HPF (0-5); Lymphocytes 1 % (21-51); Monocytes 5 % (0-10); Neutrophil 86 % (42-75); Platelet Adequacy Comment Platelets Normal; Reactive Lymphocytes 1 % (0-10); Total Cell Count 100
[2023-11-23] MEDS: guaiFENesin ER 600 MG TAB PO SCH ×2 (10:13→20:52)
[2023-11-23] MEDS: Tamsulosin HCl 0.4 MG CAP PO SCH (10:14)
[2023-11-23] MEDS: Cholecalciferol 1,000 UNITS (25 MCG) TAB PO SCH (10:14)
[2023-11-23] MEDS: Lisinopril 5 MG TAB PO SCH ×2 (10:14→20:52)
[2023-11-23] MEDS: Cyanocobalamin (Vitamin B-12) 1,000 MCG TAB PO SCH (10:14)
[2023-11-23] MEDS: Enoxaparin 40 MG (0.4 mL) SYRINGE SC SCH (10:14)
[2023-11-23] MEDS: Spironolactone 25 MG TAB PO SCH (10:15)
[2023-11-23] MEDS: Clopidogrel Bisulfate 75 MG TAB PO SCH (10:15)
[2023-11-23] MEDS: Primidone 50 MG TAB PO SCH ×4 (10:15→20:53)
[2023-11-23] MEDS: Finasteride 5 MG TAB PO SCH (10:15)
[2023-11-23] MEDS: Carvedilol 6.25 MG TAB PO SCH ×2 (10:15→20:53)
[2023-11-23] MEDS: Furosemide 40 MG TAB PO SCH (10:16)
[2023-11-23] MEDS: Aspirin 81 mg Enteric Coated Tablet PO SCH (10:16)
[2023-11-23] MEDS: Famotidine 20 MG TAB PO SCH ×2 (10:16→20:53)
[2023-11-23] MEDS: GUAIFENESIN SF SOLN 200 MG/10 ML UDCUP PO PRN (15:50)
[2023-11-23] MEDS: LevoFLOXacin 750 MG TAB PO SCH (17:42)
[2023-11-24] MEDS: Gabapentin 300 MG CAP PO SCH ×4 (05:34→21:12)
[2023-11-24] MEDS: Carbidopa/Levodopa 25-100 mg Tablet PO SCH ×4 (05:34→18:29)
[2023-11-24] MEDS: Levothyroxine Sodium 25 MCG TAB PO SCH (05:37)
[2023-11-24 06:47] LABS: Hematocrit 40.9 % (42.0-52.0); Hemoglobin 13.7 g/dL (14.0-18.0); Manual Diff?? YES; Mean Corpuscular HGB CONC 33.5 g/dL (32.0-36.0); Mean Corpuscular Hemoglobin 33.3 pg (27.0-31.0); Mean Corpuscular Volume 99.3 fl (78.0-98.0); Mean Platelet Volume 13.2 fL (7.4-10.4); Platelet Count 174 10x3/uL (130-400); RBC Distribution Width 14.3 % (11.5-14.5); Red Blood Cell (RBC) Count 4.12 mill/uL (4.70-6.10); White Blood Cell (WBC) Count 13.1 10x3/uL (4.8-10.8)
[2023-11-24 06:59] LABS: Delete Auto Diff?? YES
[2023-11-24 07:13] LABS: Calcium 8.3 mg/dL (7.8-10.44); Chloride 100 mmol/L (98-107); Potassium 3.8 mmol/L (3.5-5.1); Sodium 135 mmol/L (136-145)
[2023-11-24 07:14] LABS: Glucose 88 mg/dL (83-110)
[2023-11-24 07:15] LABS: Carbon Dioxide 26 mmol/L (23-31)
[2023-11-24 07:17] LABS: Calc. Creatinine Clearance 63 mL/min (70-130); Estimated GFR 72
[2023-11-24 07:18] LABS: BUN (Urea Nitrogen) 15 mg/dL (8.4-25.7)
[2023-11-24 07:25] LABS: Anisocytosis SLIGHT = 6-15 cells HPF (0-5); Band 1 % (5-11); Burr Cells SLIGHT = 2-5 cells HPF (0-1); CellaVision Operator ID LAB.NR; Eosinophils 2 % (0-10); Lymphocytes 5 % (21-51); Macrocytosis SLIGHT = 6-15 cells HPF (0-5); Monocytes 3 % (0-10); Neutrophil 89 % (42-75); Ovalocytes SLIGHT = 2-5 cells HPF (0-1); Platelet Adequacy Comment Platelets Normal; Poikilocytosis SLIGHT = 6-15 cells HPF (0-5); Polychromasia SLIGHT = 2-3 cells HPF (0-2); Smudge Cells 4.9 %; Total Cell Count 102
[2023-11-24 07:50] LABS: Anion Gap 12 mmol/L (10-20)
[2023-11-24] MEDS: Enoxaparin 40 MG (0.4 mL) SYRINGE SC SCH (10:12)
[2023-11-24] MEDS: Tamsulosin HCl 0.4 MG CAP PO SCH (10:12)
[2023-11-24] MEDS: Aspirin 81 mg Enteric Coated Tablet PO SCH (10:14)
[2023-11-24] MEDS: Famotidine 20 MG TAB PO SCH ×2 (10:14→19:57)
[2023-11-24] MEDS: Lisinopril 5 MG TAB PO SCH ×2 (10:14→19:56)
[2023-11-24] MEDS: guaiFENesin ER 600 MG TAB PO SCH ×2 (10:14→19:57)
[2023-11-24] MEDS: Finasteride 5 MG TAB PO SCH (10:15)
[2023-11-24] MEDS: Carvedilol 6.25 MG TAB PO SCH ×2 (10:15→19:56)
[2023-11-24] MEDS: Furosemide 40 MG TAB PO SCH (10:15)
[2023-11-24] MEDS: Cholecalciferol 1,000 UNITS (25 MCG) TAB PO SCH (10:15)
[2023-11-24] MEDS: Clopidogrel Bisulfate 75 MG TAB PO SCH (10:15)
[2023-11-24] MEDS: Cyanocobalamin (Vitamin B-12) 1,000 MCG TAB PO SCH (10:15)
[2023-11-24] MEDS: Primidone 50 MG TAB PO SCH ×4 (10:15→19:56)
[2023-11-24] MEDS: Spironolactone 25 MG TAB PO SCH (10:15)
[2023-11-24] MEDS: LevoFLOXacin 750 MG TAB PO SCH (16:14)
[2023-11-25] MEDS: Carbidopa/Levodopa 25-100 mg Tablet PO SCH ×4 (06:05→17:54)
[2023-11-25] MEDS: Gabapentin 300 MG CAP PO SCH ×4 (06:05→21:50)
[2023-11-25] MEDS: Levothyroxine Sodium 25 MCG TAB PO SCH (06:06)
[2023-11-25 07:29] LABS: #Basophils 0.1 thou/uL (0.0-0.2); #Eosinphils 0.4 thou/uL (0.0-0.7); #Monocytes 1.2 thou/uL (0.11-0.59); #Neutrophils 8.8 thou/uL (1.40-6.50); %Basophils 0.9 % (0.0-1.0); %Eosinophils 2.9 % (0.0-10.0); %Lymphocytes 8.8 % (21.0-51.0); %Monocytes 9.4 % (0.0-10.0); %Neutrophils 71.9 % (42.0-75.0); Hematocrit 42.5 % (42.0-52.0); Hemoglobin 13.9 g/dL (14.0-18.0); Manual Diff?? YES; Mean Corpuscular HGB CONC 32.7 g/dL (32.0-36.0); Mean Corpuscular Hemoglobin 32.4 pg (27.0-31.0); Mean Corpuscular Volume 99.1 fl (78.0-98.0); Mean Platelet Volume 12.6 fL (7.4-10.4); Platelet Count 196 10x3/uL (130-400); RBC Distribution Width 14.4 % (11.5-14.5); Red Blood Cell (RBC) Count 4.29 mill/uL (4.70-6.10); White Blood Cell (WBC) Count 12.3 10x3/uL (4.8-10.8)
[2023-11-25 07:45] LABS: ALT (SGPT) Less than 7 U/L (8-55); AST (SGOT) 17 U/L (5-34); Alkaline Phosphatase 54 U/L (40-110); Anion Gap 10 mmol/L (10-20); BUN (Urea Nitrogen) 18 mg/dL (8.4-25.7); Bilirubin, Total 0.8 mg/dL (0.2-1.2); Calc. Creatinine Clearance 59 mL/min (70-130); Calcium 8.5 mg/dL (7.8-10.44); Carbon Dioxide 28 mmol/L (23-31); Chloride 101 mmol/L (98-107); Estimated GFR 67; Globulin 2.9 g/dL (2.4-3.5); Glucose 91 mg/dL (83-110); Protein, Total 5.9 g/dL (5.8-8.1); Sodium 135 mmol/L (136-145)
[2023-11-25 08:10] LABS: Anisocytosis SLIGHT = 6-15 cells HPF (0-5); Band 4 % (5-11); Burr Cells SLIGHT = 2-5 cells HPF (0-1); CellaVision Operator ID LAB.KW3; Eosinophils 3 % (0-10); Lymphocytes 8 % (21-51); Metamyelocyte 2 % (0-0); Monocytes 8 % (0-10); Neutrophil 75 % (42-75); Platelet Adequacy Comment Platelets Normal; Poikilocytosis SLIGHT = 6-15 cells HPF (0-5); Polychromasia SLIGHT = 2-3 cells HPF (0-2); Total Cell Count 101
[2023-11-25] MEDS: Enoxaparin 40 MG (0.4 mL) SYRINGE SC SCH (09:20)
[2023-11-25] MEDS: guaiFENesin ER 600 MG TAB PO SCH ×2 (09:21→20:28)
[2023-11-25] MEDS: Cholecalciferol 1,000 UNITS (25 MCG) TAB PO SCH (09:21)
[2023-11-25] MEDS: Primidone 50 MG TAB PO SCH ×4 (09:21→20:28)
[2023-11-25] MEDS: Tamsulosin HCl 0.4 MG CAP PO SCH (09:21)
[2023-11-25] MEDS: Finasteride 5 MG TAB PO SCH (09:21)
[2023-11-25] MEDS: Spironolactone 25 MG TAB PO SCH (09:21)
[2023-11-25] MEDS: Clopidogrel Bisulfate 75 MG TAB PO SCH (09:21)
[2023-11-25] MEDS: Lisinopril 5 MG TAB PO SCH ×2 (09:22→20:44)
[2023-11-25] MEDS: Famotidine 20 MG TAB PO SCH ×2 (09:22→20:28)
[2023-11-25] MEDS: Cyanocobalamin (Vitamin B-12) 1,000 MCG TAB PO SCH (09:22)
[2023-11-25] MEDS: Carvedilol 6.25 MG TAB PO SCH ×2 (09:22→20:28)
[2023-11-25] MEDS: Furosemide 40 MG TAB PO SCH (09:23)
[2023-11-25] MEDS: Aspirin 81 mg Enteric Coated Tablet PO SCH (09:23)
[2023-11-25] MEDS ORDERED: Guaifenesin DM 100-10/5 ML UDCUP PO PRN (17:44)
[2023-11-25] MEDS: LevoFLOXacin 750 MG TAB PO SCH (17:55)
[2023-11-26] MEDS: Carbidopa/Levodopa 25-100 mg Tablet PO SCH ×3 (05:56→15:33)
[2023-11-26] MEDS: Levothyroxine Sodium 25 MCG TAB PO SCH (05:57)
[2023-11-26] MEDS: Gabapentin 300 MG CAP PO SCH ×3 (05:57→15:33)
[2023-11-26 06:19] LABS: Hematocrit 42.7 % (42.0-52.0); Manual Diff?? YES; Mean Corpuscular HGB CONC 32.8 g/dL (32.0-36.0); Mean Corpuscular Hemoglobin 33.1 pg (27.0-31.0); Mean Corpuscular Volume 100.9 fl (78.0-98.0); Mean Platelet Volume 12.8 fL (7.4-10.4); Platelet Count 160 10x3/uL (130-400); RBC Distribution Width 14.3 % (11.5-14.5); Red Blood Cell (RBC) Count 4.23 mill/uL (4.70-6.10)
[2023-11-26 06:29] LABS: Delete Auto Diff?? YES
[2023-11-26 06:46] LABS: ALT (SGPT) 10 U/L (8-55); AST (SGOT) 27 U/L (5-34); Albumin 2.9 g/dL (3.4-4.8); Alkaline Phosphatase 52 U/L (40-110); Anion Gap 15 mmol/L (10-20); BUN (Urea Nitrogen) 18 mg/dL (8.4-25.7); Bilirubin, Total 0.8 mg/dL (0.2-1.2); Calc. Creatinine Clearance 61 mL/min (70-130); Calcium 8.5 mg/dL (7.8-10.44); Carbon Dioxide 21 mmol/L (23-31); Chloride 103 mmol/L (98-107); Estimated GFR 69; Globulin 3.4 g/dL (2.4-3.5); Glucose 78 mg/dL (83-110); Potassium 4.5 mmol/L (3.5-5.1); Protein, Total 6.3 g/dL (5.8-8.1); Sodium 134 mmol/L (136-145)
[2023-11-26 06:59] LABS: Anisocytosis SLIGHT = 6-15 cells HPF (0-5); Band 1 % (5-11); Burr Cells MODERATE= 6-15 cells HPF (0-1); CellaVision Operator ID lab.sh2; Eosinophils 2 % (0-10); Lymphocytes 9 % (21-51); Macrocytosis SLIGHT = 6-15 cells HPF (0-5); Metamyelocyte 3 % (0-0); Monocytes 6 % (0-10); Neutrophil 79 % (42-75); Ovalocytes SLIGHT = 2-5 cells HPF (0-1); Platelet Adequacy Comment Platelets Normal; Poikilocytosis SLIGHT = 6-15 cells HPF (0-5); Smudge Cells 18.2 %; Total Cell Count 99
[2023-11-26] MEDS: Tamsulosin HCl 0.4 MG CAP PO SCH (09:24)
[2023-11-26] MEDS: Primidone 50 MG TAB PO SCH ×2 (09:25→14:50)
[2023-11-26] MEDS: Finasteride 5 MG TAB PO SCH (09:25)
[2023-11-26] MEDS: Spironolactone 25 MG TAB PO SCH (09:25)
[2023-11-26] MEDS: Clopidogrel Bisulfate 75 MG TAB PO SCH (09:25)
[2023-11-26] MEDS: Famotidine 20 MG TAB PO SCH (09:25)
[2023-11-26] MEDS: Lisinopril 5 MG TAB PO SCH (09:25)
[2023-11-26] MEDS: Enoxaparin 40 MG (0.4 mL) SYRINGE SC SCH (09:25)
[2023-11-26] MEDS: Aspirin 81 mg Enteric Coated Tablet PO SCH (09:25)
[2023-11-26] MEDS: Carvedilol 6.25 MG TAB PO SCH (09:25)
[2023-11-26] MEDS: Cyanocobalamin (Vitamin B-12) 1,000 MCG TAB PO SCH (09:25)
[2023-11-26] MEDS: guaiFENesin ER 600 MG TAB PO SCH (09:25)
[2023-11-26] MEDS: Cholecalciferol 1,000 UNITS (25 MCG) TAB PO SCH (09:25)
[2023-11-26] MEDS: Furosemide 40 MG TAB PO SCH (09:26)
[2023-11-26 10:26] VITALS: BMI 28.0
[2023-11-26 16:36] VITALS: BP 104/56; TEMP 97.8
== END 2023-11-26 16:45 | DRG 280 ==
LOC: ERS 08:19 → ERHOLD 12:10 → 2NO 16:57 → OBSVTOIN 11-19 11:33
PROVIDERS: ADMIT Internal Medicine; ATTEND Family Medicine
DX: I11.0 Hypertensive heart disease with heart failure (principal); I21.A1 Myocardial infarction type 2; I50.23 Acute on chronic systolic (congestive) heart failure; J18.9 Pneumonia, unspecified organism; I48.21 Permanent atrial fibrillation; I42.9 Cardiomyopathy, unspecified; E03.9 Hypothyroidism, unspecified; G20.A1 Parkinson's disease without dyskinesia, without mention of fluctuations; I08.1 Rheumatic disorders of both mitral and tricuspid valves; I27.20 Pulmonary hypertension, unspecified; N40.0 Benign prostatic hyperplasia without lower urinary tract symptoms; Z86.73 Personal history of transient ischemic attack (TIA), and cerebral infarction without residual deficits; Z95.0 Presence of cardiac pacemaker; Z90.49 Acquired absence of other specified parts of digestive tract; Z88.5 Allergy status to narcotic agent; Z88.0 Allergy status to penicillin; Z79.899 Other long term (current) drug therapy; Z79.82 Long term (current) use of aspirin; Z11.52 Encounter for screening for COVID-19
CPT/HCPCS: 36415; 36416; 70450; 71045; 72125; 72170; 80048; 80053; 81001; 82550; 82805; 83605; 83880; 84145; 84484; 85025; 87070; 87086; 87205; 87633; 93005; 93306; 94640; 96360; 96361; 96372; 96374; G0378; J1650; J1956; J7050; J7620

== ENCOUNTER 2024-01-24 07:24 | Emergency (ER) | payer MEDICARE ==
[2024-01-24] MEDS ORDERED: Boostrix 0.5 ML (Tdap) VIAL (>/=7 yrs of age) ONE (08:13)
== END 2024-01-24 11:02 | disposition home or self-care (01) ==
LOC: ERS 07:24
DX: S01.81XA Laceration without foreign body of other part of head, initial encounter (principal); I10 Essential (primary) hypertension; W18.30XA Fall on same level, unspecified, initial encounter
CPT/HCPCS: 12002; 70450; 72170; 90471; 90715

== ENCOUNTER 2024-05-30 13:45 | Inpatient (IN) | payer MEDICARE ==
[2024-05-30] MEDS ORDERED: Aspirin Chewable 81 MG TAB ONE (14:36)
[2024-05-30] MEDS ORDERED: Furosemide 40 MG (4 mL) VIAL ONE (14:36)
[2024-05-30 14:53] LABS: #Basophils Less than 0.03 10x3/uL (0.0-0.2); %Basophils 0.2 % (0.0-1.0); %Lymphocytes 10.9 % (21.0-51.0); %Monocytes 6.9 % (0.0-10.0); %Neutrophils 76.4 % (42.0-75.0); Hematocrit 37.9 % (42.0-52.0); Mean Corpuscular HGB CONC 34.3 g/dL (32.0-36.0); Mean Corpuscular Hemoglobin 33.2 pg (27.0-31.0); Mean Corpuscular Volume 96.7 fL (78.0-98.0); Mean Platelet Volume 15.3 fL (7.4-10.4); Platelet Count 115 10x3/uL (130-400); RBC Distribution Width 16.7 % (11.5-14.5); Red Blood Cell (RBC) Count 3.92 mill/uL (4.70-6.10)
[2024-05-30 15:11] LABS: Troponin I 0.044 ng/mL (< 0.028)
[2024-05-30 15:32] LABS: ALT (SGPT) 9 U/L (8-55); AST (SGOT) 18 U/L (5-34); Albumin 3.7 g/dL (3.4-4.8); Alkaline Phosphatase 70 U/L (40-110); Anion Gap 19 mmol/L (10-20); BUN (Urea Nitrogen) 27 mg/dL (8.4-25.7); Bilirubin, Total 0.7 mg/dL (0.2-1.2); Calc. Creatinine Clearance 0 mL/min (70-130); Calcium 8.7 mg/dL (7.8-10.44); Carbon Dioxide 21 mmol/L (23-31); Chloride 103 mmol/L (98-107); Estimated GFR 60; Globulin 3.1 g/dL (2.4-3.5); Glucose 84 mg/dL (83-110); Potassium 4.2 mmol/L (3.5-5.1); Protein, Total 6.8 g/dL (5.8-8.1); Sodium 139 mmol/L (136-145)
[2024-05-30] MEDS ORDERED: Acetaminophen 325 MG TAB PO PRN (17:08)
[2024-05-30] MEDS ORDERED: Ondansetron PF 4 MG/2 ML Vial IVP PRN (17:08)
[2024-05-30] MEDS ORDERED: Acetaminophen 650 MG Suppository PR PRN (17:08)
[2024-05-30] MEDS ORDERED: Calcium Carbonate 500 MG ChewTAB PO PRN (17:08)
[2024-05-30] MEDS ORDERED: Senokot S 8.6-50 MG TAB PO PRN (17:08)
[2024-05-30] MEDS ORDERED: Ondansetron ODT 4 MG TAB PO PRN (17:08)
[2024-05-30 17:56] LABS: Magnesium 2.2 mg/dL (1.6-2.6)
[2024-05-30 18:03] LABS: Troponin I 0.053 ng/mL (< 0.028)
[2024-05-30 18:41] VITALS: BMI 30.1
[2024-05-30 22:05] LABS: Troponin I 0.059 ng/mL (< 0.028)
[2024-05-30] MEDS: Carvedilol 6.25 MG TAB PO SCH (22:21)
[2024-05-30] MEDS: Carbidopa/Levodopa 25-100 mg Tablet PO SCH (22:21)
[2024-05-31] MEDS: Levothyroxine Sodium 25 MCG TAB PO SCH (05:01)
[2024-05-31] MEDS: Furosemide 40 MG (4 mL) VIAL SLOW IVP SCH (05:01)
[2024-05-31 05:17] LABS: #Basophils 0.04 10x3/uL (0.0-0.2); %Basophils 0.5 % (0.0-1.0); %Lymphocytes 20.4 % (21.0-51.0); %Monocytes 9.3 % (0.0-10.0); %Neutrophils 63.1 % (42.0-75.0); Hematocrit 36.4 % (42.0-52.0); Hemoglobin 12.2 g/dL (14.0-18.0); Mean Corpuscular HGB CONC 33.5 g/dL (32.0-36.0); Mean Corpuscular Hemoglobin 32.6 pg (27.0-31.0); Mean Corpuscular Volume 97.3 fL (78.0-98.0); Platelet Count 102 10x3/uL (130-400); RBC Distribution Width 16.8 % (11.5-14.5); Red Blood Cell (RBC) Count 3.74 mill/uL (4.70-6.10)
[2024-05-31 05:49] LABS: Anion Gap 14 mmol/L (10-20); BUN (Urea Nitrogen) 27 mg/dL (8.4-25.7); Calc. Creatinine Clearance 60 mL/min (70-130); Calcium 8.7 mg/dL (7.8-10.44); Carbon Dioxide 22 mmol/L (23-31); Chloride 106 mmol/L (98-107); Estimated GFR 63; Glucose 81 mg/dL (83-110); Potassium 3.7 mmol/L (3.5-5.1); Sodium 138 mmol/L (136-145)
[2024-05-31] MEDS: Carvedilol 6.25 MG TAB PO SCH (09:08)
[2024-05-31] MEDS: Tamsulosin HCl 0.4 MG CAP PO SCH (09:08)
[2024-05-31] MEDS: Finasteride 5 MG TAB PO SCH (09:08)
[2024-05-31] MEDS: Aspirin 81 mg Enteric Coated Tablet PO SCH (09:08)
[2024-05-31] MEDS: Cephalexin 250 MG CAP PO SCH (17:58)
[2024-06-01 05:22] LABS: #Basophils Less than 0.03 10x3/uL (0.0-0.2); %Basophils 0.2 % (0.0-1.0); %Eosinophils 1.8 % (0.0-10.0); %Lymphocytes 11.6 % (21.0-51.0); %Monocytes 7.7 % (0.0-10.0); %Neutrophils 78.2 % (42.0-75.0); Hematocrit 39.7 % (42.0-52.0); Hemoglobin 13.3 g/dL (14.0-18.0); Mean Corpuscular HGB CONC 33.5 g/dL (32.0-36.0); Mean Corpuscular Hemoglobin 32.1 pg (27.0-31.0); Mean Corpuscular Volume 95.9 fL (78.0-98.0); Platelet Count 109 10x3/uL (130-400); RBC Distribution Width 16.9 % (11.5-14.5); Red Blood Cell (RBC) Count 4.14 mill/uL (4.70-6.10)
[2024-06-01 06:02] LABS: Anion Gap 17 mmol/L (10-20); BUN (Urea Nitrogen) 28 mg/dL (8.4-25.7); Calc. Creatinine Clearance 56 mL/min (70-130); Carbon Dioxide 23 mmol/L (23-31); Chloride 103 mmol/L (98-107); Estimated GFR 58; Glucose 99 mg/dL (83-110); Potassium 3.8 mmol/L (3.5-5.1); Sodium 139 mmol/L (136-145)
[2024-06-01 15:30] VITALS: BP 127/72; TEMP 97.8
== END 2024-06-01 18:25 | DRG 291 ==
LOC: ERS 13:45 → 2NO 16:37 → OBSVTOIN 05-31 12:19
PROVIDERS: ADMIT Family Medicine; ATTEND Internal Medicine
DX: I11.0 Hypertensive heart disease with heart failure (principal); I50.33 Acute on chronic diastolic (congestive) heart failure; I48.0 Paroxysmal atrial fibrillation; G20.A1 Parkinson's disease without dyskinesia, without mention of fluctuations; N40.0 Benign prostatic hyperplasia without lower urinary tract symptoms; Z86.73 Personal history of transient ischemic attack (TIA), and cerebral infarction without residual deficits; Z88.0 Allergy status to penicillin; Z88.5 Allergy status to narcotic agent; Z79.899 Other long term (current) drug therapy; I25.2 Old myocardial infarction; E03.9 Hypothyroidism, unspecified; Z95.0 Presence of cardiac pacemaker; Z90.49 Acquired absence of other specified parts of digestive tract
CPT/HCPCS: 36415; 36416; 71045; 80048; 80053; 83735; 83880; 84484; 85025; 93005; 93306; 93798; 94760; 96374; 96376; G0378; J1940

== ENCOUNTER 2024-11-08 19:16 | Emergency (ER) | payer MEDICARE ==
[2024-11-08 19:47] LABS: #Basophils 0.03 10x3/uL (0.0-0.2); %Basophils 0.5 % (0.0-1.0); %Eosinophils 3.7 % (0.0-10.0); %Lymphocytes 16.1 % (21.0-51.0); %Monocytes 12.1 % (0.0-10.0); %Neutrophils 66.8 % (42.0-75.0); Hematocrit 37.6 % (42.0-52.0); Hemoglobin 12.1 g/dL (14.0-18.0); Mean Corpuscular HGB CONC 32.2 g/dL (32.0-36.0); Mean Corpuscular Hemoglobin 31.9 pg (27.0-31.0); Mean Corpuscular Volume 99.2 fL (78.0-98.0); Mean Platelet Volume 12.8 fL (7.4-10.4); Platelet Count 150 10x3/uL (130-400); RBC Distribution Width 14.5 % (11.5-14.5); Red Blood Cell (RBC) Count 3.79 mill/uL (4.70-6.10)
[2024-11-08 20:04] LABS: ALT (SGPT) Less than 5 U/L (8-55); AST (SGOT) 14 U/L (5-34); Albumin 3.7 g/dL (3.4-4.8); Alkaline Phosphatase 55 U/L (40-110); Anion Gap 13 mmol/L (10-20); BUN (Urea Nitrogen) 41 mg/dL (8.4-25.7); Bilirubin, Total 0.8 mg/dL (0.2-1.2); Calc. Creatinine Clearance 0 mL/min (70-130); Calcium 8.6 mg/dL (7.8-10.44); Carbon Dioxide 25 mmol/L (23-31); Chloride 99 mmol/L (98-107); Estimated GFR 42; Globulin 3.6 g/dL (2.4-3.5); Glucose 100 mg/dL (83-110); Potassium 4.3 mmol/L (3.5-5.1); Protein, Total 7.3 g/dL (5.8-8.1); Sodium 133 mmol/L (136-145)
[2024-11-08] MEDS ORDERED: cefTRIAXone (ROCEPHIN) 1 GM VIAL ONE (20:15)
[2024-11-08] MEDS ORDERED: Sodium Chloride 0.9% 100 ML ONE (20:15)
[2024-11-08 20:38] LABS: Bacteria/HPF 4+ HPF (None Seen); Bilirubin Negative (Negative); Blood, Urine 2+ (Negative); CAUTI Indications for Culture Pelvic or flank pain; Clarity Extra Turbid (Clear); Glucose, Urine (Dipstick) 70 mg/dL (Negative); Ketone, Urine Negative (Negative); Leukocyte 500 Leu/uL (Negative); Nitrite Negative (Negative); Protein, Urine (Dipstick) 100 mg/dL (Neg-Trace); Specific Gravity, Urine 1.009 (1.002-1.036); Squamous Epithelial None Seen HPF (0-3); Urobilinogen Normal mg/dL (Less than 2); WBC/HPF Greater than 50 HPF (0-3); pH, Urine 5.5 (5.0-9.0)
[2024-11-08 20:39] LABS: Unclassified Crystals 4+ HPF (None Seen)
[2024-11-08 20:40] LABS: Urine Culture Reflex Yes Yes
== END 2024-11-08 22:20 | disposition home or self-care (01) ==
LOC: ERS 19:16
DX: N30.00 Acute cystitis without hematuria (principal); I10 Essential (primary) hypertension; E78.5 Hyperlipidemia, unspecified; I48.91 Unspecified atrial fibrillation; I63.9 Cerebral infarction, unspecified; G20.A1 Parkinson's disease without dyskinesia, without mention of fluctuations; Z95.0 Presence of cardiac pacemaker
CPT/HCPCS: 80053; 81001; 83605; 85025; 87086; 93005; 94760; J0696; 36415; 96365

== ENCOUNTER 2025-06-10 14:40 | Outpatient (CLI) | payer MEDICARE | END 2025-06-10 14:41 | disposition home or self-care (01) | LOC: BICULT 14:40 | PROVIDERS: ATTEND Urology | DX: R39.14 Feeling of incomplete bladder emptying (principal); N28.1 Cyst of kidney, acquired; N28.9 Disorder of kidney and ureter, unspecified; N32.89 Other specified disorders of bladder | CPT/HCPCS: 76770 ==

== ENCOUNTER 2025-10-26 17:24 | Emergency (ER) | payer MEDICARE ==
[2025-10-26 18:39] LABS: #Basophils 0.03 10x3/uL (0.0-0.2); #Eosinophils 0.22 10x3/uL (0.0-0.7); #Monocytes 0.58 10x3/uL (0.11-0.59); #Neutrophils 6.80 10x3/uL (1.40-6.50); %Basophils 0.4 % (0.0-1.0); %Eosinophils 2.6 % (0.0-10.0); %Lymphocytes 9.9 % (21.0-51.0); %Monocytes 6.8 % (0.0-10.0); %Neutrophils 79.7 % (42.0-75.0); Hematocrit 38.5 % (42.0-52.0); Hemoglobin 12.8 g/dL (14.0-18.0); Mean Corpuscular Hemoglobin 31.6 pg (27.0-31.0); Mean Corpuscular Volume 95.1 fL (78.0-98.0); Platelet Count 157 10x3/uL (130-400); Red Blood Cell (RBC) Count 4.05 mill/uL (4.70-6.10); White Blood Cell (WBC) Count 8.52 10x3/uL (4.8-10.8)
[2025-10-26 18:50] LABS: ALT (SGPT) Less than 7 U/L (Less than 45); AST (SGOT) 23 U/L (11-34); Albumin 3.8 g/dL (3.1-4.5); Alkaline Phosphatase 51 U/L (40-110); Anion Gap 15 mmol/L (10-20); BUN (Urea Nitrogen) 29 mg/dL (8.4-25.7); Bilirubin, Total 0.4 mg/dL (0.3-1.2); Calc. Creatinine Clearance 0 mL/min (70-130); Calcium 8.9 mg/dL (7.8-10.44); Carbon Dioxide 25 mmol/L (23-31); Chloride 101 mmol/L (98-107); Globulin 3.1 g/dL (2.4-3.5); Glucose 106 mg/dL (83-110); Lipase 26 U/L (8-78); Potassium 4.7 mmol/L (3.5-5.1); Sodium 136 mmol/L (136-145)
[2025-10-26] MEDS ORDERED: Bacitracin 1 PK ONE (21:00)
== END 2025-10-26 22:08 ==
LOC: ERS 17:24
DX: S51.812A Laceration without foreign body of left forearm, initial encounter (principal); S01.81XA Laceration without foreign body of other part of head, initial encounter; S61.412A Laceration without foreign body of left hand, initial encounter; W07.XXXA Fall from chair, initial encounter
CPT/HCPCS: 12013; 70450; 72125; 80053; 83690; 85025; 90471; 90715; 93005